=== PATIENT | male | born 2000 | race Caucasian/White ===

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

== ENCOUNTER 2019-06-24 18:59 | Emergency (ER) | payer SELFPAY ==
[2019-06-24 19:02] VITALS: BP 140/89; PULSE 101; RESP 16; TEMP 36.7; O2SAT 98
--- NOTE | 2019-06-24 20:15 | W.ED.GENAD ---
Discharge Plan Disposition Patient Disposition: HOME Condition: Stable Discharge Details Chief Complaint: Laceration Clinical Impression: Laceration of thumb Primary Care Provider: Unknown,Unknown ED Provider: Monika Shelton Home Meds and New Rx's Prescriptions: No Action epinephrine [EpiPen 2-Spenser] 0.3 MG/0.3 ML auto-injector 0.3 mg IJ PRN PRNQty: 2 RF: 5 Discharge Instructions Instructions: Laceration (ED) Additional Instructions: Leave initial dressing in place for 24 hours. Then remove and begin wound care. Wash thumb gently once to twice daily. After washing allowed to dry completely and apply topical antibiotic ointment over the wound and a dressing. Observe for any signs of infection. Specifically redness, swelling, drainage or pain. Have reevaluation immediately for any concerns of infection. Suture removal in 10 days. Avoid submerging in water. Return for any worsening, concerns or alarming symptoms if needed sooner Medical Decision Making Very pleasant 19-year-old patient presents to the emergency room after last lacerating his left thumb on a kitchen knife prior to arrival. Bleeding is controlled. Patient presents with a 4 cm laceration along the length of the lateral fat pad of the distal tuft and a perpendicular flap proximally. Patient has no obvious joint involvement. No nail involvement. Extension into the subcutaneous is noted. On exploration of the wound there is no tendon involvement. Mild capillary bleeding is present with no obvious vessel injury. Cap refill is maintained distally. Sensation intact throughout the digit. No weakness on exam. No bony pain with palpation. Offered x-ray declines. Tetanus up-to-date 3 years ago. Patient had Hibiclens prep, local 1% lidocaine. Wound explored and irrigated with approximately 250 cc of sterile saline. Clean linear laceration, 9 sutures to close. Wound well approximated. Cap refill maintained. Full range of motion maintained. No evidence of complication. Patient tolerated without difficulty. Dressing placed. Wound care discussed. Suture removal discussed. Signs of infection discussed. The patient was stable and requested discharge. Prior to discharge, my usual and customary return precautions were reviewed with the patient - this included follow-up instructions and reasons to return to the Emergency Department if conditions worsens, does not improve as expected, or other new concerns arise. HPI General Date/Time Provider Initiated Documentation: 06/24/19 19:13. HPI Narrative: Is a 19-year-old patient presenting the emergency room for complaints of a left thumb laceration. Patient lacerated his thumb prior to arrival on a kitchen knife when slicing [employer]. Patient reports tetanus is up-to-date in the last 3 years. Patient denies numbness, tingling or weakness. Patient denies any pain. Patient reports bleeding controlled with pressure. No other injuries, complaints or concerns. Patient denies fever, chills, cough, sore throat, headaches, dizziness, nausea, vomiting. Denies paresthesia. Denies joint swelling. Denies weakness. Denies joint pain. Related Data Home Medications Medication Instructions Recorded Confirmed epinephrine [Epipen 2-Spenser] 0.3 mg IJ PRN PRN #2 auto.injct 10/03/17 06/24/19 Previous Rx's Medication Instructions Recorded epinephrine [Epipen 2-Spenser] 0.3 mg IJ PRN PRN #2 auto.injct 10/03/17 Allergies Allergy/AdvReac Type Severity Reaction Status Date / Time bee venom protein (honey bee) Allergy Hives Unverified 06/24/19 19:05 General Stated Complaint: Laceration SCOTT: 4 Review of Systems All systems reviewed & are unremarkable except as noted in HPI and below PFSH Social History Smoking/Tobacco Use Status: Current every day Tobacco Type: cigarettes Drug use: Occasionally Substance use type: marijuana Do you feel safe at home: Yes Do you feel safe in your relationship?: Yes Exam Narrative Exam Narrative: CONST: Healthy appearing patient, in no acute distress. Well hydrated. Alert and oriented. EYES: General normal appearance. Alignment normal. Eyelids normal. Conjunctiva normal. NECK: Normal visual inspection. FROM. Trachea midline. No Midline tenderness. CHEST: Normal insepection of the chest. RESP: Normal respiratory effort. Speaking full sentences. No cough. No audible wheezing. No retractions. CARDIO: No JVD. MUSCULOSKELETAL: Normal Gait. Focused exam right arm: No wrist pain with palpation, hand pain with palpation. Patient has a laceration to the lateral fat pad of his thumb. No nail involvement. Flexion extension intact in the thumb. No focal weakness. No bony pain with palpation. Bleeding controlled with pressure. Sensation intact throughout hand. Cap refill normal distally. SKIN: Normal. Dry. No rashes. Patient is a 4 cm laceration which is linear across the fat pad then has a perpendicular flap. Deep extension into the subcutaneous. No obvious ligamentous involvement. Bleeding controlled with pressure. NEURO: Alert and awake. Speech clear. PSYCH: Normal affect. Cooperative. Course Vital Signs Vital signs: Vital Signs Temperature 36.7 C 06/24/19 19:02 Pulse 101 H 06/24/19 19:02 Respiratory Rate 16 06/24/19 19:02 Blood Pressure 140/89 06/24/19 19:02 Pulse Oximetry 98 06/24/19 19:02 Temperature 36.7 C 06/24/19 19:02 Pulse 101 H 06/24/19 19:02 Respiratory Rate 16 06/24/19 19:02 Respiratory Effort 06/24/19 19:05 Blood Pressure 140/89 06/24/19 19:02 Blood Pressure Position Sitting 06/24/19 19:02 Pulse Oximetry 98 06/24/19 19:02 Procedures Laceration Laceration 1: Site: hand Side (If applicable): left Size (cm): 4 Description: linear Depth: simple, single layer Local Anesthetic: Lidocaine 1% Amount of anesthesia used (mL): 2.5 Pre-repair: wound explored, irrigated extensively and deep structures intact Skin layer closed with: other (prolene) Size (cm): 4-0 Number of sutures: 9 Technique: simple, interrupted
== END 2019-06-24 20:40 | disposition home or self-care (01) ==
PROVIDERS: Emergency Provider Physician Assistant
DX: S61.012A Laceration without foreign body of left thumb without damage to nail, initial encounter (principal); W26.0XXA Contact with knife, initial encounter
CPT/HCPCS: 12002

== ENCOUNTER 2019-07-04 10:50 | Emergency (ER) | payer OTHER, SELFPAY ==
[2019-07-04 10:59] VITALS: BP 143/89; PULSE 89; RESP 16; TEMP 36.6; O2SAT 98
--- NOTE | 2019-07-04 11:06 | W.ED.GENAD ---
Discharge Plan Disposition Patient Disposition: HOME Condition: Stable Discharge Details Chief Complaint: SutureRem Clinical Impression: Encounter for removal of sutures Primary Care Provider: Unknown,Unknown ED Provider: Kristen Marshall Home Meds and New Rx's Prescriptions: No Action epinephrine [EpiPen 2-Spenser] 0.3 MG/0.3 ML auto-injector 0.3 mg IJ PRN PRNQty: 2 RF: 5 Discharge Instructions Instructions: Stitches Removal (ED) Additional Instructions: May keep covered with Band-Aid return for any signs of infection or worsening. 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 Patient given home care instructions, verbalized understanding. HPI General Mode of arrival: ambulatory. Date/Time Provider Initiated Documentation: 07/04/19 10:51. Limitations to Documentation: no limitations. Information obtained by: patient. HPI Narrative: Patient here for suture removal had 9 simple interrupted sutures placed approximately 10 days ago to left thumb. No surrounding erythema or swelling noted, no drainage. Wound well approximated. Sutures removed by RN at bedside. Related Data Home Medications Medication Instructions Recorded Confirmed epinephrine [Epipen 2-Spenser] 0.3 mg IJ PRN PRN #2 auto.injct 10/03/17 07/04/19 Previous Rx's Medication Instructions Recorded epinephrine [Epipen 2-Spenser] 0.3 mg IJ PRN PRN #2 auto.injct 10/03/17 Allergies Allergy/AdvReac Type Severity Reaction Status Date / Time bee venom protein (honey bee) Allergy Hives Unverified 07/04/19 11:00 General Stated Complaint: SutureRem SCOTT: 4 Review of Systems Integumentary/Breasts Skin/Breast: Reports as per HPI and Reports other (Repaired laceration noted to the left thumb. Here for suture removal.) [facility] Social History Smoking/Tobacco Use Status: Current every day Tobacco Type: cigarettes Drug use: Occasionally Substance use type: marijuana Do you feel safe at home: Yes Do you feel safe in your relationship?: Yes Exam Narrative Exam Narrative: Skin: No skin erythema, drainage or signs of infection noted. Skin Trauma: laceration (Repaired laceration noted to the left lateral thumb sutures in place ) Course Vital Signs Vital signs: Vital Signs Temperature 36.6 C 07/04/19 10:59 Pulse 89 07/04/19 10:59 Respiratory Rate 16 07/04/19 10:59 Blood Pressure 143/89 H 07/04/19 10:59 Pulse Oximetry 98 07/04/19 10:59 Temperature 36.6 C 07/04/19 10:59 Temperature Source Tympanic 07/04/19 10:59 Pulse 89 07/04/19 10:59 Respiratory Rate 16 07/04/19 10:59 Respiratory Effort Non-Labored 07/04/19 11:00 Blood Pressure 143/89 H 07/04/19 10:59 Pulse Oximetry 98 07/04/19 10:59 Oxygen Delivery Method Room Air 07/04/19 10:59 Oxygen Flow Rate 0 07/04/19 10:59 Pain Level 0 07/04/19 11:01
== END 2019-07-04 11:14 | disposition home or self-care (01) ==
PROVIDERS: Emergency Provider Registered Nurse Emergency
DX: S61.012D Laceration without foreign body of left thumb without damage to nail, subsequent encounter (principal); W26.0XXD Contact with knife, subsequent encounter; Z48.02 Encounter for removal of sutures